=== PATIENT | female | born 1990 | race Caucasian/White ===

== ENCOUNTER 2017-10-29 10:41 | Emergency (ER) | payer OTHER, BC ==
[2017-10-29 11:29] LABS: ADD MAN DIFF? NO
[2017-10-29 11:32] LABS: WHITE BLOOD COUNT 10.3 10^3/ul (4.8-10.8)
[2017-10-29 11:32] LABS: BASOPHILS % 0.2 % (0.0-2.0); EOSINOPHILS # 0.1 10^3/ul (0.0-0.5); EOSINOPHILS % 0.5 % (0.0-7.0); HEMATOCRIT 36.4 % (37.0-47.0); HEMOGLOBIN 12.2 g/dl (12.0-16.0); LYMPHOCYTES # 1.9 10^3/ul (0.8-2.9); MEAN CORPUSCULAR HEMOGLOBIN 29.3 pg (29.0-33.0); MEAN CORPUSCULAR HGB CONC 33.5 g/dl (32.0-37.0); MEAN CORPUSCULAR VOLUME 87.5 fl (82.0-101.0); MONOCYTE # 0.5 10^3/ul (0.3-0.9); MONOCYTES % 4.6 % (0.0-11.0); NEUTROPHIL # 7.9 10^3/ul (1.6-7.5); NEUTROPHILS % 76.2 % (39.0-77.0); PLATELET COUNT 188 10^3/UL (140-415); RED BLOOD COUNT 4.16 10^6/ul (4.20-5.40); RED CELL DISTRIBUTION WIDTH 12.6 % (11.5-14.5)
[2017-10-29 11:42] LABS: ADD UMIC NO; UR ASCORBIC ACID NEGATIVE (NEGATIVE); UR BILIRUBIN (Dip) NEGATIVE (NEGATIVE); UR BLOOD (Dip) NEGATIVE (NEGATIVE); UR CLARITY CLEAR (CLEAR); UR COLOR YELLOW (YELLOW); UR GLUCOSE (Dip) NEGATIVE (NEGATIVE); UR KETONES (Dip) NEGATIVE (NEGATIVE); UR LEUKOCYTE ESTERASE (Dip) NEGATIVE Leu/ul (NEGATIVE); UR NITRITE (Dip) NEGATIVE (NEGATIVE); UR SPECIFIC GRAVITY (Dip) 1.009 (1.003-1.030); UR TOTAL PROTEIN (Dip) NEGATIVE (NEGATIVE); UR UROBILINOGEN (Dip) NEGATIVE (NEGATIVE)
[2017-10-29 11:55] LABS: ALANINE AMINOTRANSFERASE 18 IU/L (13-69); ALBUMIN/GLOBULIN RATIO 1.11; ALKALINE PHOSPHATASE 65 IU/L (42-121); ANION GAP 12 (8-16); ASPARTATE AMINO TRANSFERASE 22 IU/L (15-46); BILIRUBIN,INDIRECT 0.3 mg/dl (0-1.1); BILIRUBIN,TOTAL 0.3 mg/dl (0.2-1.3); BLOOD UREA NITROGEN 7 mg/dl (7-20); CALCIUM 9.3 mg/dl (8.4-10.2); CARBON DIOXIDE 27 mmol/L (21-31); CHLORIDE 102 mmol/L (97-110); CREATININE 0.48 mg/dl (0.44-1.00); GLUCOSE 102 mg/dl (70-220); LIPASE 59 U/L (23-300); POTASSIUM 3.7 mmol/L (3.5-5.1); SODIUM 137 mmol/L (135-144); TOTAL PROTEIN 7.6 g/dl (6.1-8.1)
== END 2017-10-29 13:00 | disposition home or self-care (01) ==
LOC: FTE 10:41
DX: O26.891 Other specified pregnancy related conditions, first trimester (principal); R10.2 Pelvic and perineal pain; Z3A.13 13 weeks gestation of pregnancy
CPT/HCPCS: 36415; 76801; 80053; 81003; 83690; 85025; 99284-25

== ENCOUNTER 2017-12-28 09:10 | Emergency (ER) | payer OTHER | END 2017-12-28 10:40 | disposition home or self-care (01) | LOC: FTE 09:10 | DX: H01.004 Unspecified blepharitis left upper eyelid (principal) | CPT/HCPCS: 99284; Z7502 ==

== ENCOUNTER 2018-03-01 07:31 | Outpatient (CLI) | payer OTHER | END 2018-03-01 09:35 | disposition home or self-care (01) | LOC: OBT 07:31 → L-D 07:31 → OBT 09:35 | DX: O36.8130 Decreased fetal movements, third trimester, not applicable or unspecified (principal); Z3A.30 30 weeks gestation of pregnancy | CPT/HCPCS: 76818 ==

== ENCOUNTER 2018-03-14 02:54 | Inpatient (IN) | payer OTHER ==
[2018-03-14] MEDS: LACTATED RINGER'S 1,000 ML IV (04:21)
[2018-03-14 05:22] LABS: ADD MAN DIFF? NO
[2018-03-14 05:32] LABS: WHITE BLOOD COUNT 8.1 10^3/ul (4.8-10.8)
[2018-03-14 05:32] LABS: ABNORMAL IP MESSAGE 1; BASOPHILS % 0.1 % (0.0-2.0); EOSINOPHILS # 0.1 10^3/ul (0.0-0.5); EOSINOPHILS % 1.4 % (0.0-7.0); HEMATOCRIT 33.4 % (37.0-47.0); HEMOGLOBIN 11.2 g/dl (12.0-16.0); LYMPHOCYTES # 0.6 10^3/ul (0.8-2.9); LYMPHOCYTES % 7.1 % (15.0-51.0); MEAN CORPUSCULAR HEMOGLOBIN 30.2 pg (29.0-33.0); MEAN CORPUSCULAR HGB CONC 33.5 g/dl (32.0-37.0); MEAN PLATELET VOLUME 9.6 fl (7.4-10.4); MONOCYTE # 0.4 10^3/ul (0.3-0.9); MONOCYTES % 4.6 % (0.0-11.0); NEUTROPHIL # 6.9 10^3/ul (1.6-7.5); NEUTROPHILS % 86.1 % (39.0-77.0); PLATELET COUNT 183 10^3/UL (140-415); RED BLOOD COUNT 3.71 10^6/ul (4.20-5.40)
[2018-03-14 05:34] LABS: POSITIVE DIFF @See below
[2018-03-14 05:49] LABS: ALANINE AMINOTRANSFERASE 16 IU/L (13-69); ALBUMIN 3.1 g/dl (3.3-4.9); ALBUMIN/GLOBULIN RATIO 0.96; ALKALINE PHOSPHATASE 110 IU/L (42-121); ANION GAP 8 (5-13); ASPARTATE AMINO TRANSFERASE 20 IU/L (15-46); BILIRUBIN,INDIRECT 0.5 mg/dl (0-1.1); BILIRUBIN,TOTAL 0.5 mg/dl (0.2-1.3); BLOOD UREA NITROGEN 6 mg/dl (7-20); CALCIUM 8.6 mg/dl (8.4-10.2); CARBON DIOXIDE 19 mmol/L (21-31); CHLORIDE 110 mmol/L (97-110); CREATININE 0.37 mg/dl (0.44-1.00); Estimated GFR > 60 mL/min (>60); GLUCOSE 104 mg/dl (70-220); POTASSIUM 3.4 mmol/L (3.5-5.1); SODIUM 137 mmol/L (135-144); TOTAL PROTEIN 6.3 g/dl (6.1-8.1)
[2018-03-14 05:53] LABS: ADD UMIC YES; UR ASCORBIC ACID NEGATIVE (NEGATIVE); UR BACTERIA FEW /HPF (NONE SEEN); UR BILIRUBIN (Dip) NEGATIVE (NEGATIVE); UR BLOOD (Dip) NEGATIVE (NEGATIVE); UR CLARITY SLIGHTLY CLOUDY (CLEAR); UR COLOR YELLOW (YELLOW); UR GLUCOSE (Dip) NEGATIVE (NEGATIVE); UR KETONES (Dip) 1+ mg/dL (NEGATIVE); UR LEUKOCYTE ESTERASE (Dip) 3+ Leu/ul (NEGATIVE); UR NITRITE (Dip) NEGATIVE (NEGATIVE); UR RBC 5 /HPF (0-5); UR SPECIFIC GRAVITY (Dip) 1.006 (1.003-1.030); UR SQUAMOUS EPITHELIAL CELL MODERATE /HPF (FEW); UR TOTAL PROTEIN (Dip) NEGATIVE (NEGATIVE); UR UROBILINOGEN (Dip) NEGATIVE (NEGATIVE); UR WBC 48 /HPF (0-5)
[2018-03-14] MEDS: SOD CHLORIDE 0.9% 1,000 ML IV ×2 (07:54→13:20)
[2018-03-14] MEDS: FERROUS SULFATE (EC) 325 MG TAB PO (10:05)
[2018-03-14] MEDS: PRENATAL VITAMIN PO (10:05)
[2018-03-14] MEDS: CEFTRIAXONE 1 GM/50 ML (PMX) 50 ML IVPB (10:05)
[2018-03-14] MEDS: ACETAMINOPHEN 500 MG TAB PO (13:13)
[2018-03-14] MEDS: 1/2 NS + KCL 20 MEQ 1,000 ML IV (18:36)
[2018-03-15] MEDS: 1/2 NS + KCL 20 MEQ 1,000 ML IV (04:19)
[2018-03-15 07:41] LABS: ALANINE AMINOTRANSFERASE 19 IU/L (13-69); ALBUMIN 2.7 g/dl (3.3-4.9); ALBUMIN/GLOBULIN RATIO 0.93; ALKALINE PHOSPHATASE 93 IU/L (42-121); ANION GAP 8 (5-13); ASPARTATE AMINO TRANSFERASE 18 IU/L (15-46); BILIRUBIN,INDIRECT 0.3 mg/dl (0-1.1); BILIRUBIN,TOTAL 0.3 mg/dl (0.2-1.3); BLOOD UREA NITROGEN 2 mg/dl (7-20); CARBON DIOXIDE 17 mmol/L (21-31); CHLORIDE 112 mmol/L (97-110); Estimated GFR > 60 mL/min (>60); GLUCOSE 80 mg/dl (70-220); POTASSIUM 3.8 mmol/L (3.5-5.1); SODIUM 137 mmol/L (135-144); TOTAL PROTEIN 5.6 g/dl (6.1-8.1)
[2018-03-15] MEDS: PRENATAL VITAMIN PO (08:58)
[2018-03-15] MEDS: FERROUS SULFATE (EC) 325 MG TAB PO (08:58)
[2018-03-15] MEDS: CEFTRIAXONE 1 GM/50 ML (PMX) 50 ML IVPB (10:39)
[2018-03-15] MEDS ORDERED: SOD CHLORIDE 0.9% 1,000 ML IV (12:00)
[2018-03-15] MEDS: SOD CHLORIDE 0.9% 1,000 ML IV ×2 (17:16→19:15)
[2018-03-15] MEDS: WITCH HAZEL/GLYCERIN PAD PR (22:02)
[2018-03-16] MEDS: SOD CHLORIDE 0.9% 1,000 ML IV (04:11)
[2018-03-16] MEDS: FERROUS SULFATE (EC) 325 MG TAB PO (08:50)
[2018-03-16] MEDS: PRENATAL VITAMIN PO (08:50)
[2018-03-16] MEDS: CEFTRIAXONE 1 GM/50 ML (PMX) 50 ML IVPB (12:12)
== END 2018-03-16 14:45 | disposition home or self-care (01) | DRG 833 ==
LOC: OBT 02:54 → PP1 03-15 16:03 → L-D 02:54 → PP1 03-15 21:45 → OBT 07:58 → L-D 07:30
DX: O99.613 Diseases of the digestive system complicating pregnancy, third trimester (principal); K52.9 Noninfective gastroenteritis and colitis, unspecified; O23.43 Unspecified infection of urinary tract in pregnancy, third trimester; Z3A.32 32 weeks gestation of pregnancy
CPT/HCPCS: 76818; 80053; 81001; 85025; 87045; 87086

== ENCOUNTER 2018-04-12 14:08 | Outpatient (CLI) | payer OTHER | END 2018-04-12 15:30 | disposition home or self-care (01) | LOC: OBT 14:08 → L-D 14:08 → OBT 15:30 | DX: O28.0 Abnormal hematological finding on antenatal screening of mother (principal); Z3A.36 36 weeks gestation of pregnancy | CPT/HCPCS: 76818 ==

== ENCOUNTER 2018-04-15 17:15 | Outpatient (CLI) | payer OTHER | END 2018-04-15 19:20 | disposition home or self-care (01) | LOC: OBT 17:15 → L-D 17:16 → OBT 19:20 | DX: O28.0 Abnormal hematological finding on antenatal screening of mother (principal); Z3A.36 36 weeks gestation of pregnancy | CPT/HCPCS: 76818 ==

== ENCOUNTER 2018-04-18 17:54 | Outpatient (CLI) | payer OTHER | END 2018-04-18 19:03 | disposition home or self-care (01) | LOC: OBT 17:54 → L-D 17:55 → OBT 19:03 | DX: O28.0 Abnormal hematological finding on antenatal screening of mother (principal); Z3A.37 37 weeks gestation of pregnancy | CPT/HCPCS: 76818 ==

== ENCOUNTER 2018-04-21 17:21 | Outpatient (CLI) | payer OTHER | END 2018-04-21 18:55 | disposition home or self-care (01) | LOC: OBT 17:21 → L-D 17:23 → OBT 18:55 | DX: O40.3XX0 Polyhydramnios, third trimester, not applicable or unspecified (principal); Z3A.37 37 weeks gestation of pregnancy | CPT/HCPCS: 76818 ==

== ENCOUNTER 2018-04-25 17:23 | Outpatient (CLI) | payer OTHER | END 2018-04-25 18:30 | disposition home or self-care (01) | LOC: OBT 17:23 → L-D 17:23 → OBT 18:30 | DX: O40.3XX0 Polyhydramnios, third trimester, not applicable or unspecified (principal); Z3A.38 38 weeks gestation of pregnancy | CPT/HCPCS: 76818 ==

== ENCOUNTER 2018-04-29 15:22 | Outpatient (CLI) | payer OTHER | END 2018-04-29 16:35 | disposition home or self-care (01) | LOC: OBT 15:22 → L-D 15:23 → OBT 16:35 | DX: O12.13 Gestational proteinuria, third trimester (principal); Z3A.38 38 weeks gestation of pregnancy | CPT/HCPCS: 76815; 76818 ==

== ENCOUNTER 2018-05-03 16:13 | Outpatient (CLI) | payer OTHER | END 2018-05-03 18:40 | disposition home or self-care (01) | LOC: OBT 16:13 → L-D 16:14 → OBT 18:40 | DX: O62.9 Abnormality of forces of labor, unspecified (principal); O12.13 Gestational proteinuria, third trimester; Z3A.29 29 weeks gestation of pregnancy | CPT/HCPCS: 76818 ==

== ENCOUNTER 2018-05-06 07:42 | Inpatient (IN) | payer OTHER ==
[2018-05-06] MEDS: LACTATED RINGER'S 1,000 ML IV ×3 (08:11→17:32)
[2018-05-06] MEDS ORDERED: LIDOCAINE 1% (MPF) 30 ML INJ INJ (08:30)
[2018-05-06] MEDS ORDERED: BUTORPHANOL 2 MG INJ IV (08:30)
[2018-05-06] MEDS ORDERED: OXYTOCIN 30 UNITS/LR 500 ML IV (08:30)
[2018-05-06] MEDS ORDERED: CARBOPROST 250 MCG INJ IM (08:30)
[2018-05-06] MEDS ORDERED: MISOPROSTOL 200 MCG TAB PR (08:30)
[2018-05-06 08:40] LABS: ADD MAN DIFF? NO
[2018-05-06 08:46] LABS: WHITE BLOOD COUNT 9.8 10^3/ul (4.8-10.8)
[2018-05-06 08:46] LABS: BASOPHILS % 0.4 % (0.0-2.0); EOSINOPHILS # 0.3 10^3/ul (0.0-0.5); EOSINOPHILS % 2.7 % (0.0-7.0); HEMATOCRIT 36.3 % (37.0-47.0); HEMOGLOBIN 12.3 g/dl (12.0-16.0); LYMPHOCYTES # 1.7 10^3/ul (0.8-2.9); LYMPHOCYTES % 17.4 % (15.0-51.0); MEAN CORPUSCULAR HEMOGLOBIN 29.9 pg (29.0-33.0); MEAN CORPUSCULAR HGB CONC 33.9 g/dl (32.0-37.0); MEAN CORPUSCULAR VOLUME 88.3 fl (82.0-101.0); MEAN PLATELET VOLUME 10.1 fl (7.4-10.4); MONOCYTE # 0.6 10^3/ul (0.3-0.9); MONOCYTES % 6.2 % (0.0-11.0); NEUTROPHIL # 7.1 10^3/ul (1.6-7.5); NEUTROPHILS % 72.4 % (39.0-77.0); PLATELET COUNT 162 10^3/UL (140-415); RED BLOOD COUNT 4.11 10^6/ul (4.20-5.40); RED CELL DISTRIBUTION WIDTH 13.8 % (11.5-14.5)
[2018-05-06 09:11] LABS: PROTIME 12.2 Sec (11.9-14.9)
[2018-05-06 09:12] LABS: PARTIAL THROMBOPLASTIN TIME 26.9 Sec (23.0-35.0)
[2018-05-06 09:53] LABS: HEPATITIS B SURFACE ANTIGEN NEGATIVE (NEGATIVE)
[2018-05-06] MEDS: OXYTOCIN 30 UNITS/LR 500 ML IV ×3 (12:01→23:38)
[2018-05-06 15:54] LABS: RAPID PLASMA REAGIN NONREACTIVE (NR)
[2018-05-06] MEDS ORDERED: FENTAnyl 2MCG/ML-ROPIV 0.2% 100 ML (16:42)
[2018-05-06] MEDS ORDERED: FENTAnyl 2MCG/ML-ROPIV 0.2% 100 ML BAG EPI (20:30)
[2018-05-06] MEDS ORDERED: NALOXONE (0.4 MG/ML) INJ IV (20:30)
[2018-05-06] MEDS ORDERED: DIPHENHYDRAMINE 50 MG INJ IV (20:30)
[2018-05-06] MEDS ORDERED: ONDANSETRON 4 MG INJ IV (20:30)
[2018-05-06] MEDS: METHYLERGONOVINE 0.2 MG INJ IM (23:09)
[2018-05-07] MEDS ORDERED: MISOPROSTOL 200 MCG TAB PR (00:30)
[2018-05-07] MEDS ORDERED: SENNA/DOCUSATE NA (8.6MG/50MG) TAB PO (00:30)
[2018-05-07] MEDS ORDERED: ONDANSETRON 4 MG INJ IV (00:30)
[2018-05-07] MEDS ORDERED: ZOLPIDEM 5 MG TAB PO (00:30)
[2018-05-07] MEDS ORDERED: ACETAMINOPHEN 325 MG TAB PO (00:30)
[2018-05-07] MEDS ORDERED: DIPHENHYDRAMINE 50 MG INJ IV (00:30)
[2018-05-07] MEDS ORDERED: OXYTOCIN 30 UNITS/LR 500 ML IV (00:30)
[2018-05-07] MEDS ORDERED: DEXTROSE 5%-LR 1,000 ML IV (00:30)
[2018-05-07] MEDS ORDERED: METHYLERGONOVINE 0.2 MG INJ IM (00:30)
[2018-05-07] MEDS ORDERED: MAGNESIUM HYDROXIDE 30ML CUP PO (00:30)
[2018-05-07] MEDS ORDERED: CARBOPROST 250 MCG INJ IM (00:30)
[2018-05-07] MEDS ORDERED: DIBUCAINE 1% 30 GM OINT TOP (00:30)
[2018-05-07] MEDS: BENZOCAINE 20% 56 ML SPRAY TOP (02:36)
[2018-05-07] MEDS: LANOLIN HPA 1 PKT TOP (02:37)
[2018-05-07] MEDS: WITCH HAZEL/GLYCERIN PAD PR (02:37)
[2018-05-07] MEDS: OXYCODONE/ASPIRIN (4.88/325) TAB PO (02:38)
[2018-05-07] MEDS: LACTATED RINGER'S 1,000 ML IV* ×3 (03:24→16:30)
[2018-05-07] MEDS: DOCUSATE SODIUM 100 MG CAP PO (04:17)
[2018-05-07] MEDS: IBUPROFEN 600 MG TAB PO ×3 (05:56→17:51)
[2018-05-08] MEDS: LACTATED RINGER'S 1,000 ML IV* ×2 (00:30→08:30)
[2018-05-08] MEDS: IBUPROFEN 600 MG TAB PO ×3 (00:34→12:52)
[2018-05-08 08:11] LABS: ADD MAN DIFF? NO
[2018-05-08 08:14] LABS: WHITE BLOOD COUNT 10.6 10^3/ul (4.8-10.8)
[2018-05-08 08:14] LABS: BASOPHIL # 0.1 10^3/ul (0.0-0.1); BASOPHILS % 0.5 % (0.0-2.0); EOSINOPHILS # 0.4 10^3/ul (0.0-0.5); EOSINOPHILS % 4.2 % (0.0-7.0); HEMATOCRIT 33.2 % (37.0-47.0); LYMPHOCYTES # 2.1 10^3/ul (0.8-2.9); MEAN CORPUSCULAR HEMOGLOBIN 29.6 pg (29.0-33.0); MEAN CORPUSCULAR HGB CONC 33.1 g/dl (32.0-37.0); MEAN CORPUSCULAR VOLUME 89.5 fl (82.0-101.0); MEAN PLATELET VOLUME 9.9 fl (7.4-10.4); MONOCYTE # 0.7 10^3/ul (0.3-0.9); MONOCYTES % 6.8 % (0.0-11.0); NEUTROPHIL # 7.2 10^3/ul (1.6-7.5); NEUTROPHILS % 67.6 % (39.0-77.0); PLATELET COUNT 178 10^3/UL (140-415); RED BLOOD COUNT 3.71 10^6/ul (4.20-5.40)
[2018-05-09] MEDS ORDERED: DIPHTH/TET/ACEL PERTUSS (ADULT) 0.5 ML VIAL IM* (09:00)
[2018-05-09] MEDS ORDERED: MEASLES,MUMPS,RUBELLA VACCINE INJ SC* (09:00)
== END 2018-05-08 17:29 | disposition home or self-care (01) | DRG 807 ==
LOC: L-D 07:42 → PP1 05-07 01:35
PROVIDERS: Obstetrics & Gynecology
PROC: 3E0P7GC Introduction of Other Therapeutic Substance into Female Reproductive, Via Natural or Artificial Opening (ICD-10-PCS; 2018-05-06)
PROC: 4A1HXCZ Monitoring of Products of Conception, Cardiac Rate, External Approach (ICD-10-PCS; 2018-05-06)
PROC: 10E0XZZ Delivery of Products of Conception, External Approach (ICD-10-PCS; principal; 2018-05-07)
PROC: 0KQM0ZZ Repair Perineum Muscle, Open Approach (ICD-10-PCS; 2018-05-07)
DX: O36.93X0 Maternal care for fetal problem, unspecified, third trimester, not applicable or unspecified (principal); Z37.0 Single live birth; O70.1 Second degree perineal laceration during delivery; Z3A.39 39 weeks gestation of pregnancy
CPT/HCPCS: 62319; 76815; 85025; 85610; 85730; 86592; 86850; 86900; 86901; 87340